=== PATIENT | male | born 1975 | race Hispanic/Latino ===

== ENCOUNTER 2019-03-10 19:53 | Emergency (ER) | payer SELFPAY ==
[~2019-03-10] VITALS: Ht 170.2 cm; Wt 108.9 kg
[2019-03-10] MEDS ORDERED: TETRACAINE HCL 0.5% OPTH SOLN 4 ML BTL OP ONE (20:15)
[2019-03-10] MEDS ORDERED: FLUORESCEIN SOD(OPTH) 1 MG STRP OP ONE (20:15)
== END 2019-03-10 20:25 | disposition home or self-care (01) ==
LOC: ER 19:53
DX: H57.11 Ocular pain, right eye (principal); S05.01XA Injury of conjunctiva and corneal abrasion without foreign body, right eye, initial encounter; Y99.0 Civilian activity done for income or pay
CPT/HCPCS: 99283